=== PATIENT | male | born 1985 | race Two or more races ===

== ENCOUNTER 2018-08-08 14:37 | Emergency (ER) | payer OTHER ==
[~2018-08-08] VITALS: Ht 172.7 cm; Wt 59.0 kg
[~2018-08-08 14:37] MED LIST: CHLOR-TRIMETON4 MG PO; IBUPROFEN600 MG ORAL; ZOFRAN ODT4 MG ORAL
[2018-08-08] MEDS ORDERED: NKM (14:57)
[2018-08-08 15:03] VITALS: BP 109/75
--- NOTE | 2018-08-08 15:04 | NUR ---
ED Nurse Note: AMBULATED IN TO ER FROM HOME DUE TO PAIN 9/10 AT LEFT RIB AREA S/P SLIPPED AND FALL 2 WEEKS AGO. NO TRAUMA NOTED.
--- NOTE | 2018-08-08 15:23 | Emergency Room Report ---
History of Present Illness General Chief Complaint: Multiple Trauma/Fall Source: Patient Present Illness HPI 32-year-old male presents to the emergency department complaining of 9 out of 10 in severity left lower rib pain and tenderness 2 weeks. Patient reports that he had slip and fall in the bathroom for which he landed on the corner of the countertop making contact with his left lower ribs. Patient reports he had immediate onset of pain and his pain has been persistent. Patient reports he was evaluated once initially but states that his symptoms have continued to be 9 out of 10 in severity. patient reports that when he breathes his pain is significantly exacerbated. Patient denies new trauma or fall. He denies hemoptysis. he denies midline neck or back pain he has no other complaints at this time no other relieving factors. Allergies: Coded Allergies: No Known Allergies (Unverified , 04/11/16) Patient History Past Medical History: see triage record Past Surgical History: none Pertinent Family History: none Reviewed Nursing Documentation: PMH: Agreed; PSxH: Agreed Nursing Documentation-PMH Past Medical History: No Stated History Review of Systems All Other Systems: negative except mentioned in HPI Physical Exam Vital Signs Date Time Temp Pulse Resp B/P (MAP) Pulse Ox O2 Delivery O2 Flow Rate FiO2 08/08/18 14:53 98.8 90 16 109/75 98 Room Air Medical Decision Making PA Attestation Dr. Zaragoza is my supervising Physician whom patient management has been discussed with. Diagnostic Impression: Primary Impression: Closed rib fracture Qualified Codes: S22.32XA - Fracture of one rib, left side, initial encounter for closed fracture ER Course 32-year-old male presents to the emergency department complaining of 9 out of 10 in severity left lower rib pain and tenderness 2 weeks. Patient reports that he had slip and fall in the bathroom for which he landed on the corner of the countertop making contact with his left lower ribs. Patient reports he had immediate onset of pain and his pain has been persistent. Patient reports he was evaluated once initially but states that his symptoms have continued to be 9 out of 10 in severity. patient reports that when he breathes his pain is significantly exacerbated. Patient denies new trauma or fall. He denies hemoptysis. he denies midline neck or back pain he has no other complaints at this time no other relieving factors. Ddx considered but are not limited to Fracture, dislocation, contusion, Sprain/ Strain/Spasm, Epidural abscess, Neoplastic mets. Vital signs: are WNL, pt. is afebrile H&PE are most consistent with musculoskeletal injury will perform imaging to r/ o fractures/dislocations. ORDERS: - X-ray Left Rib Series - negative for fx, Dislocation, or significant soft tissue injury, per preliminary read in ED, and signed by ALEXANDR Kern, my supervising physician has reviewed, and agrees with my interpretation. ED INTERVENTIONS: - [ ] DISCHARGE: At this time pt. is stable for d/c to home. Will provide printed patient care instructions, and any necessary prescriptions. Care plan and follow up instructions have been discussed with the patient prior to discharge. Last Vital Signs Date Time Temp Pulse Resp B/P (MAP) Pulse Ox O2 Delivery O2 Flow Rate FiO2 08/08/18 14:53 98.8 90 16 109/75 98 Room Air Disposition: HOME, SELF-CARE Condition: Stable Departure Forms: Return to Work Return to Work Date: Aug 12, 2018 Work Restrictions: No Heavy Lifting, No Prolonged Standing Other Restrictions: no prolonged standing/walking. no heavy exertion. Return to Full Activity: Aug 15, 2018 Patient Instructions: Rib Fracture Additional Instructions: Take medications as directed. Follow up with an DIRECTOR OF RELIGIOUS ACTIVITIES in 3-5 days, even if your symptoms have resolved. If symptoms persist MRI may be required at the discretion of your PCP or Ortho Specialist. --Please review list of primary care clinics, if you do not already have a primary care provider who can give you an Orthopedic Referral. Return sooner to ED if new symptoms occur, or current symptoms become worse. Do not drink alcohol, drive, or operate heavy machinery while taking [place] as this may cause drowsiness. - Please note that this Emergency Department Report was dictated using [employer] technology software, occasionally this can lead to erroneous entry secondary to interpretation by the dictation equipment. Yoselyn Kern Aug 08, 2018 15:23
[2018-08-08] MEDS ORDERED: Norco 5mg/325mg tab ORAL ONE (15:30)
[2018-08-08] MEDS ORDERED: NORCO 5-325 TA1 EACH ORAL (17:02)
[2018-08-08] MEDS ORDERED: IBUPROFEN600 MG ORAL (17:02)
--- NOTE | 2018-08-08 17:09 | Diagnostic Imaging Report ---
Indication: Chest pain Technique: One view of the chest, multiple views of the left ribs Comparison: none Findings: Chest demonstrates clear lungs, no infiltrates, effusions, congestion, or pneumothorax. The heart size is normal The ribs are unremarkable, without evidence of fracture. Impression: Negative
[2018-08-08 17:10] VITALS: BP 109/75
--- NOTE | 2018-08-08 17:11 | NUR ---
ER Nurse Note: A/OX4. PT IS CLEARED BY ALEXANRD ROCK. DC INSTRUCTION AND PRESCRIPTIONS GIVEN, PT VERBALIZED UNDERSTSANDING. IV/ID WRISTBAND REMOVED. ALL BELONGINGS TAKEN BY PT. DENIES ANY PAIN AT THIS TIME. PT AMBULATED OUT OF ER WITH STEADY GAIT.
== END 2018-08-08 17:11 | disposition home or self-care (01) ==
LOC: EMR 15:20
DX: S22.32XA Fracture of one rib, left side, initial encounter for closed fracture (principal); W18.30XA Fall on same level, unspecified, initial encounter; Y92.002 Bathroom of unspecified non-institutional (private) residence as the place of occurrence of the external cause
CPT/HCPCS: 99283